=== PATIENT | female | born 1955 | race Caucasian/White ===

== ENCOUNTER → 2017-04-21 | Day surgery (SDC) | payer OTHER ==
[2017-04-08 08:09] VITALS: Ht 165.1 cm; Wt 100.0 kg
[~2017-04-21] VITALS: Ht 165.1 cm; Wt 100.0 kg
[~2017-04-21] MED LIST: 500ML BSS 0.3ML EPI 1:1000PF IRRIG ONE; ACETAMINOPHEN 325 MG TAB PO PRN; AMVISC PLUS 0.8ML SYRINGE INT OCU ONE; ASPI-589 PO; ATROPINE SULFATE 0.1 MG/ML 5ML SYR IV PRN; BRIMONIDINE TART 0.2% OP SOLN PER DROP CHARGE ONE; BSS FLUSH ONE; BUPR-79 PO; CALC600T37 PO; ENDOCOAT 0.85ML SYRINGE INT OCU ONE; EpINEphrine INJ 1MG/ML AMP 1 MG/ML AMP ONE; FENTANYL CITRATE INJ 50 MCG/1 ML 2 ML VIAL ONE; FERR1TAB23 PO; LACTATED RINGER'S 1000ML 500 ML IV SCH; LIDOCAINE 4% OP SOLN DROP CHARGE ONE; LIDOCAINE 4% OP SOLN DROP CHARGE OPL SCH; LIDOCAINE HCL 1% MPF 2 ML VIAL ONE; MAGN1TAB41 PO; MIDAZOLAM HCL 1 MG/ML 2ML VIAL ONE; MOXIFLOXACIN OPH SOLN PER DROP CHARGE ONE; MULT-506 PO; PARO1TAB29 PO; POVIDONE-IODINE OP SOLN 30 ML BTL ONE; PROB1TAB16 PO; PROPARACAINE 0.5% OP SOLN PER DROP CHARGE OPL SCH; ROPI1TAB PO; TOBRAMYCIN/DEXAMETHASONE OPH OINT PER APPLN CHARGE ONE; VITBC PO
[2017-04-21] MEDS: PHENYLEPHRINE HCL 2.5% OP SOLN PER DROP CHARGE OPL SCH ×2 (09:46→09:51)
[2017-04-21] MEDS: TROPICAMIDE 1% OP SOLN PER DROP CHARGE OPL SCH ×2 (09:47→09:52)
[2017-04-21] MEDS: CYCLOPENTOLATE HCL 1% OP SOLN PER DROP CHARGE OPL SCH ×2 (09:48→09:53)
[2017-04-21] MEDS: MOXIFLOXACIN OPH SOLN PER DROP CHARGE OPL SCH ×2 (09:50→10:00)
[2017-04-21] MEDS: KETOROLAC 0.5% OP SOLN PER DROP CHARGE OPL SCH ×2 (09:50→09:54)
--- NOTE | 2017-04-21 10:25 | History & Physical Bridge - [place] ---
H&P Re-Evaluation Bridge Note: I have examined the patient, reviewed the History & Physical and in the interval since the performance of the History & Physical I have noted the following changes of clinical significance: No changes noted
--- NOTE | 2017-04-21 11:29 | Discharge Instructions-[facility]urgCtr ---
Discharge Instructions Date of Service Apr 21, 2017. Visit Reason for Visit: Cataract Left Eye Discharge Discharge Diagnosis / Problem: cataract left eye Discharge Goals Goal(s): Improve function Activity Recommendations Activity Limitations: per Instructions/Follow-up section Lifting Limitations: no more than 5 pounds Anesthesia . Post Anesthesia Instructions: If you have had General Anesthesia or IV Sedation: * Do not drive today. * Resume driving when surgeon permits. * Do not make important decisions or sign legal documents today. * Call surgeon for: 1. Temperature elevations greater than 101 degrees F. 2. Uncontrollable pain. 3. Excessive bleeding. 4. Persistent nausea and vomiting. 5. Medication intolerance (nausea, vomiting or rash). * For nausea and vomiting use only clear liquids such as: tea, soda, bouillon until nausea subsides, then gradually increase diet as tolerated. * If you have any concerns or questions, call your surgeon's office. If physician is unavailable and it is an emergency, call 911 or go to the nearest emergency room. . Instructions / Follow-Up Instructions / Follow-Up ACTIVITY RECOMMENDATIONS: * Light activities * You may walk outside, read, watch television. * Mild irritation and blurred vision are common for the first few days, redness around the white part of the eye is common. MEDICATIONS: Resume previous medications unless instructed otherwise by your surgeon. Eye drops (today and tomorrow): Cipro - one drop in operative eye every 2 hours while awake Prednisolone 1% - one drop in operative eye every 2 hours while awake Bromfenac - one drop in operative eye once daily SPECIAL CARE INSTRUCTIONS: * If any problems or concerns, please call Dr. Nieto's office at . * Keep plastic shield taped over eye to sleep at night. * Keep plastic shield taped over eye except to administer eye drops. * Keep plastic shield on until office visit the following day. FOLLOW UP VISIT: Follow-up with Dr. Nieto in the [facility] office as scheduled. If not already scheduled, please call the office at . Diet Recommendations Home Diet: resume previous diet Procedures Procedures Performed: Left Cataract Phacoemulsification With Intraocular Lens Implant Pending Studies Studies pending at discharge: no Medical Emergencies . Who to Call and When: Medical Emergencies: If at any time you feel your situation is an emergency, please call 911 immediately. . Non-Emergent Contact Non-Emergency issues call your: Credit Risk Officer . . "Provider Documentation" section prepared by Julio Nieto. .
[2017-04-21 11:30] VITALS: TEMP 36.6
--- NOTE | 2017-04-21 11:31 | [facility] Operative Report ---
Operative Report Operative Date Apr 21, 2017. Pre-Operative Diagnosis Cataract Left Eye Post-Operative Diagnosis Same Procedure(s) Performed Left Cataract Phacoemulsification With Intraocular Lens Implant Surgeon Dr. Nieto Metalizing Supervisor Surgeon(s) None Estimated Blood Loss 0 Findings cataract left eye Fluids (cc crystalloids) see anesthesia record Specimens 0 Drains none Anesthesia local with sedation Complication(s) None Disposition Recovery Room / PACU Implants [id number] 22.5 Indications decreased vision left eye Description of Procedure After informed consent was obtained in the holding area the patient was wheeled back to the operating room where cardiac monitoring leads and oxygen by nasal cannula was administered by Anesthesia. Gentle IV sedation was given, and the patient's local with sedation eye was prepped and draped in usual sterile fashion. A wire lid speculum was placed into the local with sedation eye and the operating microscope was swung into position. Using 0.12 forceps and a Supersharp blade a paracentesis port was made 2 o'clock hours away from the 3 o'clock position of the patient's local with sedation eye. 1% non-preserved Lidocaine was then injected into the anterior chamber for anesthesia. A 2.0 mm keratotome blade was then used to make a shelved clear corneal incision at the 3 o'clock position of the local with sedation eye. Amvisc was injected into the anterior chamber and a cystotome and Utrata forceps were used to perform a curvilinear capsulorrhexis. BSS on a hydrodissection cannula was used to hydrodissect the lens nucleus away from the capsular bag. The phacoemulsification handpiece was then used in a stop and chop fashion to remove the lens nucleus. The irrigation and aspiration handpiece was then used to remove the residual cortical material. Amvisc was injected into the capsular bag and anterior chamber and a [employer] Lomb MX60 22.5 Diopter intraocular lens was injected into the capsular bag. Irrigation and aspiration handpiece was used to remove the residual viscoelastic material. The wounds were hydrated and noted to be watertight. The wire lid speculum was removed from the eye. Vigamox, Brimonidine, and TobraDex ointment were placed on the eye and it was shielded. It should be noted that EndoCoat was used extensively during the case to protect the cornea endothelium. DISPOSITION: The patient tolerated the procedure well and was wheeled to the post anesthesia care unit in stable condition. I attest to the content of the Intraoperative Record and any orders documented therein. Any exceptions are noted below. I attest to the content of the Intraoperative Record and any orders documented therein. Any exceptions are noted below.
[2017-04-21 11:49] VITALS: BP 138/83; PULSE 66; O2SAT 96
--- NOTE | 2017-04-21 11:58 | Anesthesia Progress Nt - [facility] ---
Anesthesia Post Op Note Date & Time Apr 21, 2017 at 11:58 Vital Signs Pain Intensity: 0 Vital Signs Past 12 Hours Date Time Temp Pulse Resp B/P (MAP) Pulse Ox O2 Delivery O2 Flow Rate FiO2 04/21/17 11:49 66 16 138/83 (101) 96 Room Air 04/21/17 11:30 36.6 72 16 119/81 (94) 93 Room Air 04/21/17 09:39 37.1 65 16 119/82 (94) 96 Room Air Notes Mental Status: alert / awake / arousable, participated in evaluation Pt Amnestic to Procedure: Yes Nausea / Vomiting: adequately controlled Pain: adequately controlled Airway Patency, RR, SpO2: stable & adequate BP & HR: stable & adequate Hydration State: stable & adequate Anesthetic Complications: no major complications apparent
== END | disposition home or self-care (01) ==
LOC: X.SURG 09:26
PROVIDERS: ATTEND Ophthalmology
DX: H26.9 Unspecified cataract (principal); E78.00 Pure hypercholesterolemia, unspecified; F32.9 Major depressive disorder, single episode, unspecified; M19.90 Unspecified osteoarthritis, unspecified site; E66.9 Obesity, unspecified; Z68.36 Body mass index [BMI] 36.0-36.9, adult; Z90.89 Acquired absence of other organs; Z98.41 Cataract extraction status, right eye; Z98.890 Other specified postprocedural states

== ENCOUNTER 2017-12-20 15:35 | Emergency (ER) | payer OTHER ==
[~2017-12-20] VITALS: Ht 162.6 cm; Wt 100.5 kg
[~2017-12-20 15:35] MED LIST changes: -500ML BSS 0.3ML EPI 1:1000PF IRRIG ONE; -ACETAMINOPHEN 325 MG TAB PO PRN; -AMVISC PLUS 0.8ML SYRINGE INT OCU ONE; -ATROPINE SULFATE 0.1 MG/ML 5ML SYR IV PRN; -BRIMONIDINE TART 0.2% OP SOLN PER DROP CHARGE ONE; -BSS FLUSH ONE; -ENDOCOAT 0.85ML SYRINGE INT OCU ONE; -EpINEphrine INJ 1MG/ML AMP 1 MG/ML AMP ONE; -FENTANYL CITRATE INJ 50 MCG/1 ML 2 ML VIAL ONE; -LACTATED RINGER'S 1000ML 500 ML IV SCH; -LIDOCAINE 4% OP SOLN DROP CHARGE ONE; -LIDOCAINE 4% OP SOLN DROP CHARGE OPL SCH; -LIDOCAINE HCL 1% MPF 2 ML VIAL ONE; -MIDAZOLAM HCL 1 MG/ML 2ML VIAL ONE; -MOXIFLOXACIN OPH SOLN PER DROP CHARGE ONE; -POVIDONE-IODINE OP SOLN 30 ML BTL ONE; -PROPARACAINE 0.5% OP SOLN PER DROP CHARGE OPL SCH; -TOBRAMYCIN/DEXAMETHASONE OPH OINT PER APPLN CHARGE ONE
[2017-12-20 15:39] VITALS: TEMP 37.1; Ht 162.6 cm; Wt 100.5 kg
--- NOTE | 2017-12-20 16:02 | EMERGENCY ROOM VISIT NOTE ---
History Report prepared by [place]: Parth Pedraza Under the Supervision of: Dr. Gatito Barriga M.D. First contact with patient: 15:47 Chief Complaint: BELLS PALSY SYMPTOMS Stated Complaint: LOCKED JAW, SORE EAR, EYES SENSITIVE TO LIGHT History of Present Illness The patient is a 62 year old female who presents to the Emergency Room with complaints of worsening facial paralysis that began yesterday morning. Patient states her symptoms started with soreness in her right ear and then a "locking" of the right side of her jaw. She states this caused difficulty eating and talking but is able to move her jaw. She states today similar symptoms started to occur on the left side of her face in terms of fullness. No paralysis or weakness of left face. She adds she a sore right gland and nasal drainage. Patient states she has not been able to get her right eye to close since yesterday morning. Patient states she originally thought she had an infection. She states she called her PCP who thought she had a "serious infection, lyme disease, or a stroke." Patient adds she has a history of tick bites. Patient denies dizziness, rash, fevers, nausea, chills, weakness, and changes in vision. Source of History: patient Onset: Yesterday morning Position: head Quality: other (Paralysis) Timing: worsening Modifying Factors (Relieving): other (None) Associated Symptoms: No fevers, No nausea, No weakness, No rash Note: Negative dizziness and changes in vision. Review of Systems See HPI for pertinent positives and negatives. A total of ten systems were reviewed and were otherwise negative. Past Medical & Surgical Medical Problems: (1) Bronchitis (2) Pneumonia (3) Stomach problems (4) Urinary problem Family History FH: cancer FH: gallbladder disease FH: heart disease Social History Smoking Status: Never Smoker Alcohol Use: none Marital Status: Occupation Status: employed Current/Historical Medications Scheduled Artificial Tear Solution (Artificial Tears), 1 DROPS OPR QID Aspirin (Aspirin Ec), 81 MG PO DAILY Bupropion (Wellbutrin Sr), 150 MG PO QAM Calcium (Calcium), 600 MG PO QAM Doxycycline Hyclate (Vibramycin), 100 MG PO BID Famotidine (Pepcid), 20 MG PO BID Ferrous Sulfate (Iron), 325 MG PO QAM Magnesium Oxide (Magnesium), 400 MG PO QAM Multivitamin (Multivitamin), 1 TAB PO QAM Ocuvite Preservision (Ocuvite Preservision), 1 TAB PO DAILY Paroxetine (Paxil), 40 MG PO QPM Prednisone (Prednisone), 0 PO DAILY Probiotic Product (Probiotic), 1 TAB PO QAM Ropinirole (Requip), 2 MG PO HS Valacyclovir Hcl (Valtrex), 1,000 MG PO TID Vitamin B Complex (Vitamin B Complex), 1 TAB PO QAM Allergies Coded Allergies: Warfarin (Verified Allergy, Unknown, RASH, 04/21/17) Uncoded Allergies: SUGAR (Allergy, Mild, RASH/HIVES, 10/04/13) Physical Exam Vital Signs Date Time Temp Pulse Resp B/P (MAP) Pulse Ox O2 Delivery O2 Flow Rate FiO2 12/20/17 16:51 79 16 12/20/17 15:39 37.1 86 18 133/86 95 Room Air Physical Exam GENERAL: Awake, alert, well-appearing, in no distress HENT: Normocephalic with right facial droop, atraumatic. Oropharynx unremarkable. TMs clear bilaterally. EYES: Normal conjunctiva. Sclera non-icteric. NECK: Slight right-sided lymphadenopathy appreciated with minimal tenderness otherwise supple. No nuchal rigidity. RESPIRATORY: Clear to auscultation. No wheezes. Normal respiratory effort. CARDIAC: Normal rate. Normal rhythm. Extremities warm and well perfused. GI: Soft, non-distended. No tenderness to palpation. No rebound or guarding. No masses. RECTAL: Deferred. MUSCULOSKELETAL: Atraumatic. Chest examination reveals no tenderness. There is no CVA tenderness to palpation. LOWER EXTREMITIES: Calves are equal size bilaterally and non-tender. No edema NEURO: Right-sided facial palsy including forehead and lower face. Extraocular muscles intact. No nystagmus otherwise normal sensorium. No other sensory or motor deficits noted. SKIN: Warm and dry. No rash or jaundice noted. Medical Decision & Procedures ER Provider Diagnostic Interpretation: Radiology results as stated below per my review and radiologist interpretation: CT SINUSES-MAXILLOFACIAL W/O CLINICAL HISTORY: Sinus pain. Photophobia. Right facial weakness. COMPARISON STUDY: None. TECHNIQUE: CT scan of the paranasal sinuses was performed in the axial plane. Coronal reconstructed images were obtained and reviewed. A dose lowering technique was utilized adhering to the principles of ALARA. CT DOSE: FINDINGS: The mastoid air cells appear well aerated. The middle ear cavities appear well aerated. There is no significant mucosal disease within the frontal ethmoid maxillary or sphenoid sinuses. The ostiomeatal units are widely patent bilaterally. Arthritic changes are present within the temporal mandibular joints. IMPRESSION: 1. No evidence of acute or chronic sinusitis 2. The ostiomeatal units are widely patent bilaterally 3. Moderate bilateral TMJ arthritis Electronically signed by: Ricky Perez M.D. 12/20/2017 4:[address] HEAD WITHOUT CONTRAST (CT) CLINICAL HISTORY: Right facial droop. COMPARISON STUDY: No previous studies for comparison. TECHNIQUE: Axial CT of the brain is performed from the vertex to the skull base. IV contrast was not administered for this examination. A dose lowering technique was utilized adhering to the principles of ALARA. CT DOSE: FINDINGS: No intra or extra-axial mass lesions are visualized. There is no CT evidence of acute cortical infarction. There is no evidence of midline shift. There is no acute hemorrhage. No calvarial fractures are visualized. There are patchy white matter hypodensities likely on a small vessel basis. There is no evidence of pathologic ventricular dilatation. There is no evidence of acute sinusitis IMPRESSION: No acute intracranial findings Electronically signed by: Ricky Perez M.D. 12/20/2017 4:30 PM Laboratory Results 12/20/17 16:08 Red Blood Count 4.49, Mean Corpuscular Volume 92.2, Mean Corpuscular Hemoglobin 30.1, Mean Corpuscular Hemoglobin Concent 32.6, Mean Platelet Volume 9.4, Neutrophils (%) (Auto) 61.5, Lymphocytes (%) (Auto) 22.6, Monocytes (%) (Auto) 7.0, Eosinophils (%) (Auto) 8.1, Basophils (%) (Auto) 0.4, Neutrophils # (Auto) 4.24, Lymphocytes # (Auto) 1.56, Monocytes # (Auto) 0.48, Eosinophils # (Auto) 0.56, Basophils # (Auto) 0.03 12/20/17 16:08 Test 12/20/17 16:08 White Blood Count 6.90 K/uL (4.8-10.8) Red Blood Count 4.49 M/uL (4.2-5.4) Hemoglobin 13.5 g/dL (12.0-16.0) Hematocrit 41.4 % (37-47) Mean Corpuscular Volume 92.2 fL (80-100) Mean Corpuscular Hemoglobin 30.1 pg (25-34) Mean Corpuscular Hemoglobin Concent 32.6 g/dl (32-36) Platelet Count 314 K/uL (130-400) Mean Platelet Volume 9.4 fL (7.4-10.4) Neutrophils (%) (Auto) 61.5 % Lymphocytes (%) (Auto) 22.6 % Monocytes (%) (Auto) 7.0 % Eosinophils (%) (Auto) 8.1 % Basophils (%) (Auto) 0.4 % Neutrophils # (Auto) 4.24 K/uL (1.4-6.5) Lymphocytes # (Auto) 1.56 K/uL (1.2-3.4) Monocytes # (Auto) 0.48 K/uL (0.11-0.59) Eosinophils # (Auto) 0.56 K/uL (0-0.5) Basophils # (Auto) 0.03 K/uL (0-0.2) RDW Standard Deviation 46.2 fL (36.4-46.3) RDW Coefficient of Variation 13.8 % (11.5-14.5) Immature Granulocyte % (Auto) 0.4 % Immature Granulocyte # (Auto) 0.03 K/uL (0.00-0.02) Anion Gap 7.0 mmol/L (3-11) Est Creatinine Clear Calc Drug Dose 67.8 ml/min Estimated GFR () 71.2 Estimated GFR (Non- 61.4 BUN/Creatinine Ratio 17.2 (10-20) Calcium Level 8.8 mg/dl (8.5-10.1) Lyme Disease IgG Antibody POS (NEG) Laboratory results reviewed by me Medications Administered Medications (Trade) Dose Ordered Sig/Chemo Route Start Time Stop Time Status Last Admin Dose Admin Famotidine (Pepcid 20mg Iv Push) 20 mg ONE STAT IV 12/20/17 17:08 12/20/17 17:11 DC 12/20/17 17:41 20 MG Prednisone (PredniSONE TAB) 60 mg NOW STAT PO 12/20/17 17:08 12/20/17 17:11 DC 12/20/17 17:41 60 MG Valacyclovir HCl (Valtrex Tab) 1,000 mg NOW ONCE PO 12/20/17 17:15 12/20/17 17:16 DC 12/20/17 17:42 1,000 MG Artificial Tears (Artificial Tears) 2 drops ONE STAT OP 12/20/17 17:13 12/20/17 17:14 DC 12/20/17 17:42 2 DROPS Doxycycline Hyclate (Vibramycin Cap) 100 mg NOW STAT PO 12/20/17 17:46 12/20/17 17:47 DC 12/20/17 17:46 100 MG ED Course 1548: The patient was evaluated in room A11B. A complete history and physical exam was performed. 1646: I reevaluated the patient and updated her on her findings. 1707: Fluorescein of right eye completed without evidence of abrasion. 1759: I reevaluated the patient. Discussed results and discharge instructions. She verbalized understanding and agreement. The patient is ready for discharge. Medical Decision Differential Diagnosis: Stroke, sinus infection, Robles's palsy, and shingles. Patient presents with several days of sinus fullness difficulty chewing on the right side followed by appearance yesterday of right-sided facial palsy. No headache or visual change. Denies trauma. No other numbness or weakness. CT completed and would expect a stroke to appear here if this was one. Symptoms seems consistent with Robles's palsy. CTs are unremarkable. No evidence of significant sinusitis or other infection. No other neurological deficits. Laboratory studies unremarkable. Lyme study was sent and preliminarily it appears positive. Will treat with a 14 day course of doxycycline. Fluorescein staining of the right eye did not reveal significant evidence of any abrasions. Will start on eye lubricant along with prednisone, valacyclovir, and Pepcid. Recommend outpatient follow-up with her PCP in the coming week. Discussed return precautions. Medication Reconcilliation Current Medication List: was personally reviewed by me Blood Pressure Screening Patient's blood pressure: Elevated blood pressure Blood pressure disposition: Referred to PCP Impression Primary Impression: Robles's palsy Additional Impression: Lyme disease Scribe Attestation The scribe's documentation has been prepared under my direction and personally reviewed by me in its entirety. I confirm that the note above accurately reflects all work, treatment, procedures, and medical decision making performed by me. Departure Information Dispostion Home / Self-Care Prescriptions Artificial Tear Solution (ARTIFICIAL TEARS) 1 Kat Kat 1 DROPS OPR QID, #15 ML 5 Refills Prov: Gatito Barriga M.D. 12/20/17 Doxycycline Hyclate (VIBRAMYCIN) 100 Mg Cap 100 MG PO BID for 14 Days, #28 CAP Prov: Gatito Barriga M.D. 12/20/17 Valacyclovir Hcl (VALTREX) 1 Gm Tab 1000 MG PO TID for 7 Days, #21 TAB Prov: Gatito Barriga M.D. 12/20/17 Prednisone (Prednisone) 20 Mg Tab 0 PO DAILY for 7 Days, #21 TAB 3 tabs daily for 7 days Prov: Gatito Barriga M.D. 12/20/17 Famotidine (Pepcid) 20 Mg Tab 20 MG PO BID for 7 Days, #14 TAB Prov: Gatito Barriga M.D. 12/20/17 Referrals Julio Nieto MD (PCP) Forms HOME CARE DOCUMENTATION FORM, IMPORTANT VISIT INFORMATION Patient Instructions My [facility] Additional Instructions Utilize the antibiotic to treat possible Lyme disease. Please use the valacyclovir, prednisone, and Pepcid as well as directed. Utilize the eye lubricant to help prevent your eye from drying out and becoming injured. If you have new or worsening symptoms including other neurological problems please return to the emergency department immediately for otherwise I would recommend follow-up within the week with your regular doctor. Problem Qualifiers
[2017-12-20 16:28] LABS: BASO % 0.4 %; BASO ABS # 0.03 K/uL (0-0.2); EOS % 8.1 %; EOS ABS # 0.56 K/uL (0-0.5); HEMATOCRIT 41.4 % (37-47); HEMOGLOBIN 13.5 g/dL (12.0-16.0); IG# 0.03 K/uL (0.00-0.02); LYMPH % 22.6 %; LYMPH ABS # 1.56 K/uL (1.2-3.4); MEAN CELL VOLUME 92.2 fL (80-100); MEAN CORPUSCULAR HEMOGLOBIN 30.1 pg (25-34); MEAN CORPUSCULAR HGB CONC 32.6 g/dl (32-36); MEAN PLATELET VOLUME 9.4 fL (7.4-10.4); MONO ABS # 0.48 K/uL (0.11-0.59); NEUT % 61.5 %; NEUT ABS # 4.24 K/uL (1.4-6.5); PLATELET COUNT 314 K/uL (130-400); RED CELL DISTRIBUTION WIDTH CV 13.8 % (11.5-14.5); RED CELL DISTRIBUTION WIDTH SD 46.2 fL (36.4-46.3)
--- NOTE | 2017-12-20 16:31 | DIAGNOSTIC IMAGING REPORT ---
CT HEAD WITHOUT CONTRAST (CT) CLINICAL HISTORY: Right facial droop. COMPARISON STUDY: No previous studies for comparison. TECHNIQUE: Axial CT of the brain is performed from the vertex to the skull base. IV contrast was not administered for this examination. A dose lowering technique was utilized adhering to the principles of ALARA. CT DOSE: FINDINGS: No intra or extra-axial mass lesions are visualized. There is no CT evidence of acute cortical infarction. There is no evidence of midline shift. There is no acute hemorrhage. No calvarial fractures are visualized. There are patchy white matter hypodensities likely on a small vessel basis. There is no evidence of pathologic ventricular dilatation. There is no evidence of acute sinusitis IMPRESSION: No acute intracranial findings Electronically signed by: Ricky Perez M.D. 12/20/2017 4:30 PM Dictated Date/Time: 12/20/2017 4:29 PM
--- NOTE | 2017-12-20 16:34 | DIAGNOSTIC IMAGING REPORT ---
CT SINUSES-MAXILLOFACIAL W/O CLINICAL HISTORY: Sinus pain. Photophobia. Right facial weakness. COMPARISON STUDY: None. TECHNIQUE: CT scan of the paranasal sinuses was performed in the axial plane. Coronal reconstructed images were obtained and reviewed. A dose lowering technique was utilized adhering to the principles of ALARA. CT DOSE: FINDINGS: The mastoid air cells appear well aerated. The middle ear cavities appear well aerated. There is no significant mucosal disease within the frontal ethmoid maxillary or sphenoid sinuses. The ostiomeatal units are widely patent bilaterally. Arthritic changes are present within the temporal mandibular joints. IMPRESSION: 1. No evidence of acute or chronic sinusitis 2. The ostiomeatal units are widely patent bilaterally 3. Moderate bilateral TMJ arthritis Electronically signed by: Ricky Perez M.D. 12/20/2017 4:33 PM Dictated Date/Time: 12/20/2017 4:30 PM
[2017-12-20 16:47] LABS: CALCIUM 8.8 mg/dl (8.5-10.1); CREATININE 0.98 mg/dl (0.60-1.20); POTASSIUM 3.8 mmol/L (3.5-5.1)
[2017-12-20] MEDS ORDERED: VALA1TAB2 PO (16:56)
[2017-12-20] MEDS ORDERED: FAMO20TA11 PO (16:56)
[2017-12-20] MEDS ORDERED: ARTIOIN OP (16:56)
[2017-12-20] MEDS ORDERED: PRED20TA PO (16:56)
[2017-12-20] MEDS ORDERED: FAMOTIDINE 20MG/5ML IV PUSH IV STA (17:08)
[2017-12-20] MEDS ORDERED: ARTIFICIAL TEARS OP SOLN OP STA (17:13)
[2017-12-20] MEDS ORDERED: ROPI2TAB6 PO (17:22)
[2017-12-20] MEDS ORDERED: MULT-190 PO (17:22)
[2017-12-20] MEDS ORDERED: ASPI81TA28 PO (17:25)
[2017-12-20] MEDS ORDERED: DOXYCYCLINE HYCLATE 100 MG CAP PO STA (17:46)
[2017-12-20] MEDS ORDERED: DOXY100C PO (17:48)
[2017-12-20] MEDS ORDERED: ARTISOL12 OPR (18:07)
[2017-12-20 18:32] VITALS: BP 127/79; PULSE 80; O2SAT 97
== END 2017-12-20 18:00 | disposition home or self-care (01) ==
LOC: C.EDB 15:37 → C.EDA 18:00
DX: G51.0 Bell's palsy (principal); A69.20 Lyme disease, unspecified; Z79.82 Long term (current) use of aspirin; Z79.899 Other long term (current) drug therapy; Z88.8 Allergy status to other drugs, medicaments and biological substances; Z91.018 Allergy to other foods

== ENCOUNTER → 2018-01-15 | Outpatient (CLI) | payer OTHER ==
[~2018-01-15] MED LIST changes: +ARTISOL12 OPR; -ASPI-589 PO; +ASPI81TA28 PO; +MULT-190 PO; -ROPI1TAB PO; +ROPI2TAB6 PO
--- NOTE | 2018-01-15 13:49 | DIAGNOSTIC IMAGING REPORT ---
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 COMPARISON: None available TECHNIQUE: 3 views of the lumbar spine FINDINGS: Mild convex left curvature of the lumbar spine. There are 5 nonrib-bearing lumbar type vertebral segments present. No acute fracture or subluxation. Mild multilevel spondylitic spurring with mild multilevel intervertebral disc space narrowing. At least moderate multilevel facet arthropathy, most pronounced at L4-L5 and L5-S1. Moderate formed stool is noted about the right hemicolon. IMPRESSION: 1. No acute fracture or subluxation. 2. Degenerative changes as above. The above report was generated using voice recognition software. It may contain grammatical, syntax or spelling errors. Electronically signed by: Pablito St M.D. 01/15/2018 1:47 PM Dictated Date/Time: 01/15/2018 1:44 PM
== END | disposition home or self-care (01) ==
LOC: C.RAD 12:14
PROVIDERS: ATTEND Chiropractor
DX: M54.5 Low back pain (principal); M47.816 Spondylosis without myelopathy or radiculopathy, lumbar region